=== PATIENT | male | born 1965 | race Two or more races ===

== ENCOUNTER 2019-10-05 20:07 | Emergency (ER) | payer OTHER ==
[~2019-10-05] VITALS: Ht 170.2 cm; Wt 81.6 kg
[2019-10-05] MEDS ORDERED: ACCU-CHEK COMFORT CURVE STRIP VI ONE (21:00)
[2019-10-05 21:57] LABS: Basophils # (auto) 0 uL; Basophils % (auto) 0.5 % (0.0-2.0); Eosinophils # (auto) 0.1 uL; Eosinophils % (auto) 1.5 % (0.0-7.0); Hematocrit 46.4 % (41.0-53.0); Hemoglobin 15.7 g/dL (13.5-17.5); Lymphocytes # (auto) 1.3 uL; Lymphocytes % (auto) 21.6 % (10.0-50.0); Mean Corpuscular Hemoglobin 28.8 pg (28.0-32.0); Mean Corpuscular Hgb Conc. 33.9 g/dL (32.0-36.0); Mean Corpuscular Volume 85.2 fL (80.0-100.0); Monocytes # (auto) 0.8 uL; Monocytes % (auto) 12.4 % (0.0-12.0); Neutrophils # (auto) 3.9 uL; Nucleated Red Blood Cells % 0.1 %; Platelet Count (auto) 230 10^3/uL (140-450); Red Blood Cells 5.44 10^6/uL (4.5-5.90); Red Cell Distribution Width 14.2 % (11.8-14.3); White Blood Cell 6.1 10^3/uL (4.4-10.8)
[2019-10-05 22:14] LABS: INR 1.11 (0.9-1.15); Partial Thromboplastin Time 29.5 sec (23.64-32.05)
[2019-10-05 22:21] LABS: Albumin 4.2 g/dL (3.4-5.0); BUN/Creatinine Ratio 9.9; Potassium 3.4 mmol/L (3.5-5.1)
[2019-10-05 22:24] LABS: Bilirubin, Total 0.9 mg/dL (0.2-1.0); Total Protein 8.1 g/dL (6.4-8.2)
[2019-10-05 22:25] LABS: Acetaminophen < 2.0 ug/mL (10-30); Salicylate < 1.7 mg/dL (2.8-20.0)
[2019-10-05 23:07] VITALS: BP 130/75
== END 2019-10-05 23:07 | disposition home or self-care (01) ==
LOC: EDBD 20:07 → EEVIPCON 20:12 → ER 20:12
DX: F20.9 Schizophrenia, unspecified (principal); R45.851 Suicidal ideations
CPT/HCPCS: 36415; 71045; 80053; 80320; 80329; 82962; 85025; 85610; 85730; 93005